=== PATIENT | male | born 1940 | race Native Hawaiian/Other Pacific Islander ===

== ENCOUNTER 2021-11-29 15:39 | Inpatient (IN) | payer OTHER ==
[~2021-11-29] VITALS: Ht 188 cm; Wt 75.0 kg
[2021-11-29 15:42] VITALS: BP 142/70; TEMP 98.6
[2021-11-29 16:07] LABS: PLATELET COUNT 167 K/uL (142-355)
[2021-11-29 16:15] LABS: PARTIAL THROMBOPLASTIN TIME 21.7 SECONDS (24.5-33.6)
[2021-11-29 16:21] LABS: POTASSIUM 6.1 mmol/L (3.6-5.2)
[2021-11-29 19:05] VITALS: BP 114/56
[2021-11-30 00:26] VITALS: BP 126/67; TEMP 98.2; Ht 188 cm; Wt 75.0 kg
[2021-11-30] MEDS ORDERED: LIPITOR20 MG PO (02:12)
[2021-11-30] MEDS ORDERED: LISI10TA11 PO (02:13)
[2021-11-30] MEDS ORDERED: NIFE30TA PO (02:13)
[2021-11-30] MEDS ORDERED: PACERONE200 MG PO (02:13)
[2021-11-30] MEDS ORDERED: CLONIDINE0.3 MG PO (02:14)
[2021-11-30] MEDS ORDERED: JANTOVEN5 MG PO (02:15)
[2021-11-30] MEDS ORDERED: JANTOVEN2.5 MG PO (02:15)
[2021-11-30 04:00] VITALS: BP 121/62; TEMP 98.1
[2021-11-30 08:00] VITALS: BP 134/57; TEMP 98.3
[2021-11-30 08:49] LABS: PLATELET COUNT 132 K/uL (142-355)
[2021-11-30 09:11] LABS: POTASSIUM 5.7 mmol/L (3.6-5.2)
[2021-11-30 11:57] VITALS: BP 146/68; TEMP 98
[2021-11-30 16:00] VITALS: BP 133/68; TEMP 97.6
[2021-11-30 20:00] VITALS: BP 137/85; TEMP 97.2
[2021-12-01] VITALS (7 sets, daily range): BP systolic 147–187; BP diastolic 74–112; TEMP 96.3–97.7
[2021-12-01 06:10] LABS: PLATELET COUNT 149 K/uL (142-355)
[2021-12-01 06:28] LABS: POTASSIUM 5.8 mmol/L (3.6-5.2)
[2021-12-02] VITALS (9 sets, daily range): BP systolic 144–164; BP diastolic 86–108; TEMP 96.6–97.5
[2021-12-02 09:01] LABS: PLATELET COUNT 162 K/uL (142-355)
[2021-12-02 09:12] LABS: POTASSIUM 5.1 mmol/L (3.6-5.2)
[2021-12-03] VITALS: BP 155/98; TEMP 97
[2021-12-03 04:00] VITALS: BP 174/110; TEMP 97
[2021-12-03 08:00] VITALS: BP 152/102; TEMP 97.2
[2021-12-03 11:59] VITALS: BP 154/104; TEMP 97.2
[2021-12-03 16:29] VITALS: BP 148/96; TEMP 97
[2021-12-03 20:00] VITALS: BP 146/80; TEMP 98.2
[2021-12-04] VITALS: BP 178/87; TEMP 98.4
[2021-12-04 04:00] VITALS: BP 196/96; TEMP 98.4
[2021-12-04 05:02] LABS: POTASSIUM 5.6 mmol/L (3.6-5.2)
[2021-12-04 05:19] LABS: PLATELET COUNT 189 K/uL (142-355)
[2021-12-04 08:00] VITALS: BP 192/102; TEMP 97.4
[2021-12-04 11:50] LABS: POTASSIUM 5.9 mmol/L (3.6-5.2)
[2021-12-04 12:09] VITALS: BP 217/107; TEMP 96.4
== END 2021-12-04 16:45 | disposition home health service (06) | DRG 280 ==
LOC: ED 15:39 → MED/SURG 19:00
PROVIDERS: ADMIT Hospitalist; ATTEND Internal Medicine
DX: I21.4 Non-ST elevation (NSTEMI) myocardial infarction (principal); G92.8 Other toxic encephalopathy; I50.41 Acute combined systolic (congestive) and diastolic (congestive) heart failure; U07.1 COVID-19; J12.82 Pneumonia due to coronavirus disease 2019; N17.8 Other acute kidney failure; I48.20 Chronic atrial fibrillation, unspecified; E87.0 Hyperosmolality and hypernatremia; E87.5 Hyperkalemia; Z86.73 Personal history of transient ischemic attack (TIA), and cerebral infarction without residual deficits; E86.0 Dehydration; I11.0 Hypertensive heart disease with heart failure
CPT/HCPCS: 36415; 36600; 51702; 80048; 80053; 80200; 80202; 80307; 80320; 81002; 81015; 82550; 82805; 83605; 83735; 83880; 84484; 85007; 85027; 85610; 85730; 87040; 87077; 87185; 87186; 87205; 87635; 90471; 90686; 93005; 94760; 96360; 96365; 96366; 96367; 99284; J1630; J1650; J1956; J2270; J2405; J2543; J3260; J3370; J3490; J7120; U0003